=== PATIENT | male | born 1990 | race American Indian/Alaskan Native ===

== ENCOUNTER 2017-08-04 12:28 | Inpatient (IN) | payer BC, OTHER ==
[2017-08-04] MEDS ORDERED: ZOFRAN ONE ×2 (13:30→17:36)
[2017-08-04] MEDS ORDERED: TYLENOL ONE ×3 (13:30→17:38)
[2017-08-04] MEDS ORDERED: TYLENOL PO ONE (13:33)
[2017-08-04] MEDS ORDERED: ZOFRAN IV ONE (13:34)
--- NOTE | 2017-08-04 17:46 | Emergency Department Report ---
Blank Doc - Documentation Documentation: Patient is a 27-year-old male with a past medical history of asthmas, with body aches cough, congestion productive cough and 3 episodes of nausea and vomiting. Patient states he feels like his O he can't breathe however O2 sats within normal limits patient is febrile be given Vicodin for fever and pain and will perform a chest x-ray
[2017-08-04] MEDS ORDERED: NORCO 7.5/325 PO ONE (17:47)
--- NOTE | 2017-08-04 20:16 | XRay Report ---
FINAL REPORT EXAM: XR CHEST ROUTINE 2V HISTORY: cough TECHNIQUE: PA and lateral views of the chest PRIORS: None. FINDINGS: Lines, tubes, and devices: N/A Lungs and pleura: Trachea is normal in position. There is a rounded nodular shadow in the left upper lobe posteriorly measuring 12 mm overlying the posterior 5th rib. There is at least 2 adjacent smaller satellite nodular shadows superior to this larger nodule. CT is warranted. Lungs are otherwise clear of infiltrate, pleural effusion, vascular congestion, or pneumothorax. Cardiomediastinal silhouette: Cardiac and mediastinal silhouettes are unremarkable. Other: Bony structures are intact. IMPRESSION: No acute cardiopulmonary process seen. Several rounded nodular shadows in the left upper lobe posteriorly. CT is warranted.
[2017-08-04] MEDS ORDERED: MOTRIN PO ONE ×3 (21:06→21:36)
[2017-08-04] MEDS ORDERED: TORADOL IV ONE (21:08)
--- NOTE | 2017-08-04 21:10 | Emergency Department Report ---
HPI - General Chief Complaint: Upper Respiratory Infection Time Seen by Provider: 08/04/17 17:35 - HPI HPI: Patient care reports vomited 3 days with fever, upper respiratory cough and congestion. Denies any chest pain but reports some shortness of breath and exertion. Denies any recent long distance travel over 3 hours, denies any hormonal therapy, denies any recent convalescent period or any history of cancer. Denies any history of blood clots in his lungs or in his chest. Patient says he has a weak immune system and that he has asthma but denies having HIV. He denies generalized body ache at 8 out of 10. He said he took [id number] cough and cold but it's not helping. He said he vomited once today. Denies any diarrhea or abdominal pain. Denies any urinary burning frequency or urgency. Denies any sore throat. Patient does have access to primary care but he doesn't have a primary care doctor. ED Past Medical Hx - Past Medical History Previous Medical History?: Yes Hx Asthma: Yes Additional medical history: "WEAK IMMUNE SYSTEM" - Surgical History Past Surgical History?: No - Family History Family history: no significant - Social History Smoking Status: Current Every Day Smoker Substance Use Type: None - Medications Home Medications: Home Medications Medication Instructions Recorded Confirmed Last Taken Type Doxycycline [Vibramycin CAP] 100 mg PO BID #14 capsule 12/26/14 Unknown Rx Nitrofurantoin [place]/M-Cryst 100 mg PO Q12HR #14 capsule 12/26/14 Unknown Rx [Macrobid] Phenazopyridine HCl [Pyridium] 200 mg PO TID #6 tablet 12/26/14 Unknown Rx ED Review of Systems ROS: Stated complaint: FLU SYMTOMS Other details as noted in HPI Comment: All other systems reviewed and negative Constitutional: chills, fever, weakness Eyes: denies: eye pain, eye discharge ENT: congestion. denies: ear pain, throat pain Respiratory: cough, shortness of breath, SOB with exertion. denies: orthopnea, SOB at rest, stridor, wheezing Cardiovascular: denies: chest pain, palpitations, dyspnea on exertion, edema, syncope, paroxysmal nocturnal dyspnea Gastrointestinal: nausea, vomiting. denies: abdominal pain, diarrhea, constipation, hematemesis, melena, hematochezia Genitourinary: denies: urgency, dysuria, frequency, hematuria, discharge, testicular pain, testicular mass Musculoskeletal: myalgia. denies: back pain, joint swelling, arthralgia Skin: denies: rash Neurological: denies: headache, weakness, numbness, paresthesias, confusion, abnormal gait, vertigo Physical Exam - Physical Exam Vital Signs: Vital Signs 08/04/17 08/04/17 08/04/17 13:26 17:40 17:48 Temperature 101.5 F H Pulse Rate 89 91 H Respiratory 18 22 22 Rate Blood Pressure 122/70 112/78 O2 Sat by Pulse 97 97 Oximetry 08/04/17 08/04/17 08/04/17 17:52 18:11 18:12 Temperature 101.8 F H Pulse Rate Respiratory 16 16 Rate Blood Pressure O2 Sat by Pulse Oximetry Vital Signs 08/04/17 08/04/17 08/04/17 13:26 17:40 17:48 Temperature 101.5 F H Pulse Rate 89 91 H Respiratory 18 22 22 Rate Blood Pressure 122/70 112/78 Blood Pressure [Left] O2 Sat by Pulse 97 97 Oximetry 08/04/17 08/04/17 08/04/17 17:52 18:11 18:12 Temperature 101.8 F H Pulse Rate Respiratory 16 16 Rate Blood Pressure Blood Pressure [Left] O2 Sat by Pulse Oximetry 08/04/17 08/04/17 08/04/17 21:34 21:39 21:40 Temperature 99.8 F H Pulse Rate 92 H Respiratory 22 22 22 Rate Blood Pressure Blood Pressure 118/72 [Left] O2 Sat by Pulse 100 Oximetry General: This is a 27-year-old male that looks ill. He is nontoxic in appearance. Physical Exam: Head: Normocephalic, atraumatic, no abrasion, no bruising and no contusion. Eyes: Biateral pupils equal and reactive to light, bilateral EOM intact.. Bilateral conjunctival and sclera without injection, normal accommodation. No nystagmus Mouth: Moist, no pharyngeal exudate or erythema. No peritonsillar abscesses. Uvula is midline and oral airways patent. Ears: TM congested without erythema. Bilateral EAC without any redness swelling or drainage. No mastoid bone tenderness Nose: Lateral nasal turbinates congested with erythema and clear drainage. Maxillary and frontal sinuses tender to palpate. Neck: Supple, No Cervical adenopathy, full range of motion and no C-spine tenderness. No swelling or tracheal deviation normal reflexes Cardiovascular: S1, S2. Regular rate and rhythm. No murmur. Capillary refill is less then 3 seconds. Lungs: Clear to auscultate bilaterally. No rhonchi, wheezes or rales. No chest wall tenderness. No chest contusion. No bruising to chest. MSK: Strength 5/5 in all extremities. No joint deformity or crepitus. Normal inspection. Full range of motion to all extremities. No laceration, abrasion or ecchymotic area noted. Patient able to fully flex and extend bilateral knees without any difficulties. Bilateral knees nontender to palpate. Abdomen: Non-tender to palpate in all quadrants, no guarding or rebound tenderness, positive bowel sounds in all quadrants. No CVA tenderness. No hernia, bruit or mass. No rigidity or distention. Extremities: No clubbing, cyanosis or edema. +2 pulses. No neurovascular compromise Skin: Clean, dry and intact. No rash or lesions. Neurological: GCS at 15, Pt is alert and oriented 3 speech is clear period. Bilateral hand stone engraver strong and equal. Normal gait. Negative Romberg and no pronator drift. Normal Reflexes. No motor or sensory deficit Back: No vertebral tenderness, no paraspinal tenderness. The bend over and touch his toes without any difficulties. Ambulates without any difficulties. Psych: Normal mood and behavior ED Course Vital Signs 08/04/17 08/04/17 08/04/17 13:26 17:40 17:48 Temperature 101.5 F H Pulse Rate 89 91 H Respiratory 18 22 22 Rate Blood Pressure 122/70 112/78 O2 Sat by Pulse 97 97 Oximetry 08/04/17 08/04/17 08/04/17 17:52 18:11 18:12 Temperature 101.8 F H Pulse Rate Respiratory 16 16 Rate Blood Pressure O2 Sat by Pulse Oximetry Vital Signs 08/04/17 08/04/17 08/04/17 13:26 17:40 17:48 Temperature 101.5 F H Pulse Rate 89 91 H Respiratory 18 22 22 Rate Blood Pressure 122/70 112/78 Blood Pressure [Left] O2 Sat by Pulse 97 97 Oximetry 08/04/17 08/04/17 08/04/17 17:52 18:11 18:12 Temperature 101.8 F H Pulse Rate Respiratory 16 16 Rate Blood Pressure Blood Pressure [Left] O2 Sat by Pulse Oximetry 08/04/17 08/04/17 08/04/17 21:34 21:39 21:40 Temperature 99.8 F H Pulse Rate 92 H Respiratory 22 22 22 Rate Blood Pressure Blood Pressure 118/72 [Left] O2 Sat by Pulse 100 Oximetry - Reevaluation(s) Reevaluation #1: 08/04/17 14:11 Patient given acetaminophen 650 mg and Zofran 4 mg for pain and nausea Reevaluation #2: 08/04/17 18:13 He was given Hayden 5/325 one tablet that was ordered by Dr. Espino and chest x- ray showed patient has some abnormality in lungs and radiologist suggests CT scan. Patient is stable. He is able to tolerate oral liquids. I discussed patient is X her report and informed him that he will need to have lab work and a CT scan with IV contrast for further evaluation per radiologist and abnormal findings and CT scan. 08/04/17 22:14 Reevaluation #3: 08/04/17 22:14 Patient is stable, temperature is below 100 and other vital signs are stable. He is awaiting CT angiogram of the chest. Patient able to tolerate oral liquids but says he feels very dehydrated therefore he will was ordered to receive normal saline 1 L. Patient was given Toradol 30 mg IV for a can and Motrin 600 mg by mouth for fever bottle washer machine. Reevaluation #4: 08/04/17 23:06 Xopenex and Atrovent inhaler to be started. IV fluid normal saline 1 L infusing. Patient is stable and pain is better. Reevaluation #5: 08/04/17 23:[address] scan findings with patient and discussed that he will need to be admitted for IV antibiotic and to be monitored closely because he has viral versus bacterial pneumonia and always low of his lungs. Patient agrees with plan. Nebulizer treatments at present, IV fluids completed. I spoke with Dr. Lim who is the attending physician in emergency room and he wants patient to be admitted by hospitalist for close monitoring. He also wants patient to be started on Tamiflu. Dr. Renae is the hospitalist water pollution specialist and I paged her 2 and awaiting call back. ED Medical Decision Making - Lab Data Result diagrams: 08/04/17 21:22 08/04/17 21:22 Lab Results 08/04/17 08/04/17 08/04/17 Range/Units 21:22 21:22 21:22 WBC 7.3 (4.5-11.0) K/mm3 RBC 5.03 (3.65-5.03) M/mm3 Hgb 15.4 H (11.8-15.2) gm/dl Hct 45.7 H (35.5-45.6) % MCV 91 (84-94) fl MCH 31 (28-32) pg MCHC 34 (32-34) % RDW 12.4 L (13.2-15.2) % Plt Count 160 (140-440) K/mm3 [place] % (Auto) Diving Fisher PT 14.1 (12.2-14.9) Sec. INR 1.04 (0.87-1.13) APTT 39.1 H (24.2-36.6) Sec. Sodium 135 L (137-145) mmol/L Potassium 5.1 H (3.6-5.0) mmol/L Chloride 97.1 L (98-107) mmol/L Carbon Dioxide 22 (22-30) mmol/L Anion Gap 21 mmol/L BUN 11 (9-20) mg/dL Creatinine 0.8 (0.8-1.5) mg/dL Estimated GFR > 60 ml/min BUN/Creatinine Ratio 14 % Glucose 118 H (75-100) mg/dL Calcium 8.9 (8.4-10.2) mg/dL - Radiology Data Radiology results: report reviewed Chest x-ray revealed patient with no acute cardiopulmonary processes seen. Seen rounded nodular shadow in the left upper lobe posteriorly. Radiologist recommended CT scan. Patient CT scan suggests the patient has no pulmonary embolism but numerous nodular then flew these are descended bilaterally in all lobes the large S and most numerous in the left upper lobe. These have outer groundglass margin suggesting inflammatory or infectious etiology. Patient started off with flulike symptoms for possible viral pneumonia with superimposed bacterial. He also has peribronchial wall thickening noted bilaterally, particularly in the upper lobes, suggesting a viral etiology. - Medical Decision Making ED course: Critical care attestation.: If time is entered above; I have spent that time in minutes in the direct care of this critically ill patient, excluding procedure time. ED Disposition Clinical Impression: Fever in adult, Upper respiratory infection with cough and congestion Nausea & vomiting Qualifiers: Vomiting type: unspecified Vomiting Intractability: non-intractable Qualified Code(s): R11.2 - Nausea with vomiting, unspecified PNA (pneumonia) Qualifiers: Pneumonia type: due to unspecified organism Laterality: bilateral Lung location : unspecified part of lung Qualified Code(s): J18.9 - Pneumonia, unspecified organism Disposition: OP ADMIT IP TO THIS HOSP Is pt being admited?: Yes Does the pt Need Aspirin: No Condition: Stable Additional Instructions: Please increase your fluid intake. Take medication as prescribed Follow-up or referral as instructed Follow-up with a primary care physician and if he do not have a primary care physician follow-up with outside Medical Center. Follow-up with lung doctor as instructed. Referrals: PRIMARY MD JASON [Primary Care Provider] - 08/06/17 DAVE ENGLE MD [Staff Physician] - 08/06/17 [facility] [Outside] - 08/06/17 Forms: Accompanied Note, Work/School Release Form(ED)
[2017-08-04] MEDS ORDERED: NACL ONE (21:12)
[2017-08-04 21:44] LABS: Hematocrit 45.7 % (35.5-45.6); Hemoglobin 15.4 gm/dl (11.8-15.2); Mean Corpuscular HGB Conc 34 % (32-34); Mean Corpuscular Hemoglobin 31 pg (28-32); Mean Corpuscular Volume 91 fl (84-94); Platelet Count 160 K/mm3 (140-440); Red Blood Count 5.03 M/mm3 (3.65-5.03); Red Cell Distribution Width 12.4 % (13.2-15.2)
[2017-08-04 22:02] LABS: INR 1.04 (0.87-1.13)
[2017-08-04 22:03] LABS: BUN/Creatinine Ratio 14; Blood Urea Nitrogen 11 mg/dL (9-20); Calcium 8.9 mg/dL (8.4-10.2); Hemolysis Index 147; Partial Thromboplastin Time 39.1 Sec. (24.2-36.6)
[2017-08-04] MEDS ORDERED: NACL 0.9% 1000 ML 1,000 ML IV ONE (22:06)
[2017-08-04 22:16] LABS: Band Neutrophils # (Manual) 0.1 K/mm3; Basophils % (Manual) 0 % (0.0-1.8); Eosinophils % (Manual) 0 % (0.0-4.3); Total Cells Counted 100
[2017-08-04 22:17] LABS: Platelet Estimate Consistent w Auto; RBC Morphology Normal
[2017-08-04] MEDS ORDERED: ATROVENT IH ONE (23:06)
[2017-08-04] MEDS ORDERED: XOPENEX IH ONE (23:06)
--- NOTE | 2017-08-04 23:22 | Cat Scan Report ---
FINAL REPORT EXAM: CT ANGIO CHEST HISTORY: cough, SOB. Abnormal CXR TECHNIQUE: Enhanced CT of the chest at 2.5 mm axial intervals following a pulmonary embolism protocol. Coronal and sagittal imaging were also obtained. Coronal oblique MIP projections were obtained. Contrast: Intravenous contrast given PRIORS: CXR 08/04/2017 FINDINGS: There is no evidence for pulmonary embolism in the main pulmonary artery, right and left pulmonary arteries or their major distributions. However, CT does not exclude distal pulmonary emboli. There are multiple nodular densities scattered throughout all lobes of both lungs. Most significant of densities are in both upper lobes, left worse than right. However, these rounded densities have peripheral haziness suggesting a partially ground-glass appearance. Given the patient's age, findings are most likely infectious for inflammatory in etiology. However, they should be followed to radiographic resolution after appropriate interval therapy. The the nodular shadow seen on chest x-ray in the left apex correspond to the largest nodule seen on CT. On CT, the largest nodule measures 1 cm located posteriorly in the left upper lobe. Extensive peribronchial wall thickening is noted bilaterally, in the upper lobes, left worse than right (axial images 51-52). This finding is most commonly seen with a viral etiology. There is no evidence for vascular congestion or pleural effusion. There is no evidence for mediastinal, hilar, or axillary adenopathy. Residual thymus is noted in the anterior mediastinum. Cardiovascular structures are within normal limits. No evidence for ventricular chamber enlargement is seen. Images through the lung bases include the upper abdomen which show no abnormalities of the visualized abdominal viscera. Bony structures demonstrate no focal abnormalities. IMPRESSION: 1. no evidence for pulmonary embolism. 2. Numerous nodular densities present bilaterally the largest and most numerous in the left upper lobe. These have a outer ground-glass margin suggesting an inflammatory or infectious etiology. 3. Peribronchial wall thickening noted bilaterally, particularly in the upper lobes, suggesting a viral etiology.
[2017-08-04] MEDS ORDERED: LEVAQUIN 750MG/150ML 750 MG/150 ML BAG IV ONE (23:35)
[2017-08-05] MEDS: TAMIFLU PO SCH ×3 (02:05→21:40)
[2017-08-05] MEDS ORDERED: ZOFRAN IV PRN (02:53)
[2017-08-05] MEDS ORDERED: MILK OF MAGNESIA PO PRN (02:53)
[2017-08-05] MEDS ORDERED: DULCOLAX PR PRN (02:53)
[2017-08-05] MEDS: TYLENOL PO PRN ×2 (06:22→16:48)
[2017-08-05] MEDS: DUONEB *Not for PRN Use IH SCH ×3 (08:42→19:30)
--- NOTE | 2017-08-05 09:07 | Event Note ---
Date: 08/05/17 Patient seen and examined medical records reviewed Admitted early this morning with flulike symptoms, and droplet isolation Incidental findings of nodular densities on chest x-ray, pulmonary consulted Patient feels slightly better Mild cough nonproductive Physical examination changes Continue current management Follow pulmonary evaluation and recommendations Plan of care reviewed with the patient and his nurse
[2017-08-05] MEDS: LOVENOX SUB-Q SCH (11:19)
[2017-08-05] MEDS: LEVAQUIN 750MG/150ML 750 MG/150 ML BAG IV SCH (11:21)
--- NOTE | 2017-08-05 23:13 | Consultation ---
History of Present Illness Consult date: 08/05/17 History of present illness: PULMONARY CONSULTATION. DR. Werner thank you for asking us to participate in the care of this patient This is 27 year old male admitted with fever and cough with productive brown sputum mixed with blood.Denies chest pain or shortness of breath at this time. Denies night sweats or loss of weight. Apatite is coming back. Denies sore throat or nasal congestion.Patient has history of asthma. Smokes Marijuana. Denies smoking cigaretts and alcohol. works with [employer]. Not and has four children.Allergic to clndamycin HCL and clindamycin Palmitate. Patient denies any history TB or exposure to the TB Patient. Past History Past Medical History: other (Asthma.) Social history: other (Smokes Marjuana). denies: smoking, alcohol abuse, prescription drug abuse Medications and Allergies Allergies Allergy/AdvReac Type Severity Reaction Status Date / Time clindamycin HCl Allergy Rash Verified 12/08/14 07:44 [From Cleocin] clindamycin palmitate HCl Allergy Rash Verified 12/08/14 07:44 [From Cleocin] clindamycin phosphate Allergy Rash Verified 12/08/14 07:44 [From Cleocin] Penicillins Allergy Rash Verified 12/08/14 07:44 codeine AdvReac Unknown Verified 12/08/14 07:44 Home Medications Medication Instructions Recorded Confirmed Last Taken Type Doxycycline [Vibramycin CAP] 100 mg PO BID #14 capsule 12/26/14 Unknown Rx Nitrofurantoin [place]/M-Cryst 100 mg PO Q12HR #14 capsule 12/26/14 Unknown Rx [Macrobid] Phenazopyridine HCl [Pyridium] 200 mg PO TID #6 tablet 12/26/14 Unknown Rx Active Meds: Active Medications Acetaminophen (Tylenol) 650 mg PO Q4H PRN PRN Reason: Pain MILD(1-3)/Fever >100.5/NOLASCO Last Admin: 08/05/17 16:48 Dose: 650 mg Albuterol/Ipratropium (Duoneb *Not For Prn Use*) 1 ampul IH Q6HRT SHANNON Last Admin: 08/05/17 19:30 Dose: 1 ampul Bisacodyl (Dulcolax) [address] QDAY PRN PRN Reason: Constipation unrelieved by MOM Enoxaparin Sodium (Lovenox) 40 mg SUB-Q QDAY [facility] Last Admin: 08/05/17 11:19 Dose: 40 mg Levofloxacin/Dextrose (Levaquin 750mg/150ml) 750 mg in 150 mls @ 100 mls/hr IV Q24H [facility] Last Admin: 08/05/17 11:21 Dose: 100 mls/hr Magnesium Hydroxide (Milk Of Magnesia) 30 ml PO Q4H PRN PRN Reason: Constipation Ondansetron HCl (Zofran) 4 mg IV Q8H PRN PRN Reason: N/V unrelieved by Reglan Oseltamivir Phosphate (Tamiflu) 75 mg PO BID [facility] Stop: 08/09/17 10:01 Last Admin: 08/05/17 21:40 Dose: 75 mg Review of Systems All systems: negative Physical Examination Vital signs: Vital Signs Temp Pulse Resp BP Pulse Ox 101.5 F H 89 18 122/70 97 08/04/17 13:26 08/04/17 13:26 08/04/17 13:26 08/04/17 13:26 08/04/17 13:26 General appearance: no acute distress, alert, other (Having cough.) Eyes: non-icteric ENT: oropharynx moist Neck: supple, no JVD Ascultation: Bilateral: rhonchi Cardiovascular: regular rate and rhythm Gastrointestinal: normoactive bowel sounds, soft, non-tender Integumentary: normal Extremities: no cyanosis, no edema normal mental status, non-focal exam, pupils equal and round, CN II-XII normal anxious Results - Laboratory Findings CBC and BMP: 08/04/17 21:22 08/04/17 21:22 PT/INR, D-dimer PT 14.1 Sec. (12.2-14.9) 08/04/17 21:22 INR 1.04 (0.87-1.13) 08/04/17 21:22 Abnormal lab findings: Abnormal Labs 08/04/17 08/04/17 08/04/17 21:22 21:22 21:22 Hgb 15.4 H Hct 45.7 H RDW 12.4 L Lymphocytes % (Manual) 12.0 L Monocytes % (Manual) 18.0 H Lymphocytes # (Manual) 0.9 L Monocytes # (Manual) 1.3 H APTT 39.1 H Sodium 135 L Potassium 5.1 H Chloride 97.1 L Glucose 118 H - Diagnostic Findings Chest x-ray: report reviewed (Round nodular densities left upper lobe posteriorly.), image reviewed CT scan - chest: report reviewed (No pulmonary emboli. upper lobe nodules more on left upper lobe, reported likely inflsmmatory.), image reviewed Assessment and Plan This is 27 year old male admitted with fever and cough with productive brown sputum mixed with blood.Denies chest pain or shortness of breath at this time. Denies night sweats or loss of weight. Apatite is coming back. Denies sore throat or nasal congestion.Patient has history of asthma. Smokes Marijuana. Denies smoking cigaretts and alcohol. works with [employer]. Not and has four children.Allergic to clndamycin HCL and clindamycin Palmitate. Patient denies any history TB or exposure to the TB Patient. - Patient Problems (1) Pulmonary nodules Current Visit: Yes Status: Acute Plan to address problem: Upper lobes predominant in left upper lobe. Recommend sputum for AFB Respiratory isolation PPD and brinda skin tests. Continue Levaquin. Continue S/C Lovenox. (2) Fever in adult Current Visit: Yes Status: Acute Plan to address problem: Upper lobes predominant in left upper lobe. Recommend sputum for AFB Respiratory isolation PPD and brinda skin tests. Continue Levaquin. (3) Upper respiratory infection with cough and congestion Current Visit: Yes Status: Acute Plan to address problem: Continue Levaquin. Albuterol/atrovent aerosol treatments q 6 hours. ABGs on room air.
[2017-08-06] MEDS: DUONEB *Not for PRN Use IH SCH ×4 (01:32→21:25)
[2017-08-06 08:07] LABS: Basophils % (Auto) 0.2 % (0.0-1.8); Eosinophils % (Auto) 0.3 % (0.0-4.3); Hematocrit 41.2 % (35.5-45.6); Lymphocytes # (Auto) 1.6 K/mm3 (1.2-5.4); Lymphocytes % (Auto) 20.3 % (13.4-35.0); Mean Corpuscular HGB Conc 34 % (32-34); Mean Corpuscular Hemoglobin 31 pg (28-32); Mean Corpuscular Volume 91 fl (84-94); Monocytes % (Auto) 12.7 % (0.0-7.3); Platelet Count 156 K/mm3 (140-440); Red Blood Count 4.52 M/mm3 (3.65-5.03); Red Cell Distribution Width 12.4 % (13.2-15.2)
[2017-08-06 08:26] LABS: BUN/Creatinine Ratio 13; Blood Urea Nitrogen 10 mg/dL (9-20); Hemolysis Index 7
[2017-08-06] MEDS: LOVENOX SUB-Q SCH (10:51)
[2017-08-06] MEDS: LEVAQUIN 750MG/150ML 750 MG/150 ML BAG IV SCH (10:51)
[2017-08-06] MEDS: TAMIFLU PO SCH ×2 (14:15→23:05)
--- NOTE | 2017-08-06 19:25 | Progress Note ---
Assessment and Plan This is 27 year old male admitted with fever and cough with productive brown sputum mixed with blood.Denies chest pain or shortness of breath at this time. Denies night sweats or loss of weight. Apatite is coming back. Denies sore throat or nasal congestion.Patient has history of asthma. Smokes Marijuana. Denies smoking cigaretts and alcohol. works with [employer]. Not and has four children.Allergic to clndamycin HCL and clindamycin Palmitate. Patient denies any history TB or exposure to the TB Patient. 08/06/17 Patient alert awake and resting on room air. Patient says feeling better. Cough is getting better.O2 saturation 97% on room air.PO2 86 on room air. Patient still running low grade temp - Patient Problems (1) Pulmonary nodules Current Visit: Yes Status: Acute Plan to address problem: Upper lobes predominant in left upper lobe. Recommend sputum for AFB Respiratory isolation PPD and brinda skin tests. Continue Levaquin. Continue S/C Lovenox. (2) Fever in adult Current Visit: Yes Status: Acute Plan to address problem: Upper lobes predominant in left upper lobe. Recommend sputum for AFB Respiratory isolation PPD and brinda skin tests. Continue Levaquin. (3) Upper respiratory infection with cough and congestion Current Visit: Yes Status: Acute Plan to address problem: Continue Levaquin. Albuterol/atrovent aerosol treatments q 6 hours. Subjective Date of service: 08/06/17 Interval history: Patient alert awake and resting on room air. Patient says feeling better. Cough is getting better.O2 saturation 97% on room air. PO2 86 on room air.Patient still running low grade temp. Objective Vital Signs - 12hr 08/06/17 08/06/17 08/06/17 08:14 08:19 08:54 Temperature 99.4 F Pulse Rate 78 Pulse Rate [ 88 89 Bilateral Upper Lobe] Respiratory 20 Rate Respiratory 18 18 Rate [Bilateral Upper Lobe] Blood Pressure 122/69 O2 Sat by Pulse 95 95 Oximetry 08/06/17 08/06/17 10:00 16:24 Temperature 98.8 F Pulse Rate 72 Pulse Rate [ Bilateral Upper Lobe] Respiratory 18 18 Rate Respiratory Rate [Bilateral Upper Lobe] Blood Pressure 137/83 O2 Sat by Pulse 97 Oximetry Constitutional: no acute distress, alert, other (Having cough.) Eyes: non-icteric ENT: oropharynx moist Neck: supple, no JVD Ascultation: Bilateral: rhonchi Cardiovascular: regular rate and rhythm Gastrointestinal: normoactive bowel sounds, soft, non-tender Integumentary: normal Extremities: no cyanosis, no edema Neurologic: normal mental status, non-focal exam, pupils equal and round, CN II- XII normal Psychiatric: anxious CBC and BMP: 08/06/17 07:42 08/06/17 07:42 ABG, PT/INR, D-dimer: ABG POC ABG pH 7.422 (7.35-7.45) 08/06/17 12:59 POC ABG pCO2 39.0 (35-45) 08/06/17 12:59 POC ABG pO2 86 (80-105) 08/06/17 12:59 POC ABG HCO3 25.4 08/06/17 12:59 POC ABG Total CO2 27 08/06/17 12:59 POC ABG O2 Sat 97 08/06/17 12:59 PT/INR, D-dimer PT 14.1 Sec. (12.2-14.9) 08/04/17 21:22 INR 1.04 (0.87-1.13) 08/04/17 21:22 Abnormal lab findings: Abnormal Labs 08/04/17 08/04/17 08/04/17 21:22 21:22 21:22 Hgb 15.4 H Hct 45.[address] [place] % (Auto) [place] # Lymphocytes % (Manual) 12.0 L Monocytes % (Manual) 18.0 H Lymphocytes # (Manual) 0.9 L Monocytes # (Manual) 1.3 H APTT 39.1 H Sodium 135 L Potassium 5.1 H Chloride 97.1 L Glucose 118 H 08/06/17 08/06/17 07:42 07:42 Hgb Hct RDW 12.[address] [place] % (Auto) 12.[address] [place] # 1.0 H Lymphocytes % (Manual) Monocytes % (Manual) Lymphocytes # (Manual) Monocytes # (Manual) APTT Sodium Potassium Chloride 94.5 L Glucose
--- NOTE | 2017-08-06 19:48 | Progress Note ---
Assessment and Plan Assessment and plan: --Febrile illness; secondary to sepsis Supportive care, IV antibiotics, follow cultures --Upper respiratory symptoms; with possible pneumonitis Continue antibiotic Levaquin, nebulizers, oxygen Supportive care --Bilateral pulmonary nodules predominantly left upper lobe Pulmonary following, sputum for AFB, PPD test, respiratory isolation Supportive care --Mild hyponatremia at admission; not improved --DVT prophylaxis with Lovenox Closely monitor and follow cultures and pending tests Plan of care reviewed with the patient History Interval history: Patient seen and evaluated medical records reviewed Pulmonary evaluation noted and appreciated Patient is in airborne isolation, evaluation for pulmonary tuberculosis Vital signs reviewed No new events reported by the nursing staff Hospitalist Physical - Constitutional Vitals: Temp Pulse Resp BP Pulse Ox 98.8 F 72 18 137/83 97 08/06/17 16:24 08/06/17 16:24 08/06/17 16:24 08/06/17 16:24 08/06/17 16:24 General appearance: Present: mild distress, cachectic - EENT Eyes: Present: PERRL, EOM intact - Neck Neck: Present: supple, normal ROM - Respiratory Respiratory effort: normal Respiratory: bilateral: diminished, rhonchi, negative: rales, wheezing - Cardiovascular Rhythm: regular Heart Sounds: Present: S1 & S2 - Extremities Extremities: no ischemia, No edema Peripheral Pulses: within normal limits - Abdominal General gastrointestinal: soft, non-tender, non-distended, normal bowel sounds - Integumentary Integumentary: Present: clear, warm - Psychiatric Psychiatric: appropriate mood/affect, cooperative - Neurologic Neurologic: CNII-XII intact, moves all extremities Results - Labs CBC & Chem 7: 08/06/17 07:42 08/06/17 07:42 Labs: Laboratory Last Values WBC 7.9 K/mm3 (4.5-11.0) 08/06/17 07:42 RBC 4.52 M/mm3 (3.65-5.03) 08/06/17 07:42 Hgb 14.0 gm/dl (11.8-15.2) 08/06/17 07:42 Hct 41.2 % (35.5-45.6) 08/06/17 07:42 MCV 91 fl (84-94) 08/06/17 07:42 MCH 31 pg (28-32) 08/06/17 07:42 MCHC 34 % (32-34) 08/06/17 07:42 RDW 12.4 % (13.2-15.2) L 08/06/17 07:42 Plt Count 156 K/mm3 (140-440) 08/06/17 07:42 Lymph % (Auto) 20.3 % (13.4-35.0) 08/06/17 07:42 [place] % (Auto) 12.7 % (0.0-7.3) H 08/06/17 07:42 Eos % (Auto) 0.3 % (0.0-4.3) 08/06/17 07:42 Baso % (Auto) 0.2 % (0.0-1.8) 08/06/17 07:42 Lymph # 1.6 K/mm3 (1.2-5.4) 08/06/17 07:42 [place] # 1.0 K/mm3 (0.0-0.8) H 08/06/17 07:42 Eos # 0.0 K/mm3 (0.0-0.4) 08/06/17 07:42 Baso # 0.0 K/mm3 (0.0-0.1) 08/06/17 07:42 Add Manual Diff Complete 08/04/17 21:22 Total Counted 100 08/04/17 21:22 Seg Neutrophils % 66.5 % (40.0-70.0) 08/06/17 07:42 Seg Neuts % (Manual) 69.0 % (40.0-70.0) 08/04/17 21:22 Band Neutrophils % 1.0 % 08/04/17 21:22 Lymphocytes % (Manual) 12.0 % (13.4-35.0) L 08/04/17 21:22 Reactive Lymphs % (Man) 0 % 08/04/17 21:22 Monocytes % (Manual) 18.0 % (0.0-7.3) H 08/04/17 21:22 Eosinophils % (Manual) 0 % (0.0-4.3) 08/04/17 21:22 Basophils % (Manual) 0 % (0.0-1.8) 08/04/17 21:22 Metamyelocytes % 0 % 08/04/17 21:22 Myelocytes % 0 % 08/04/17 21:22 Promyelocytes % 0 % 08/04/17 21:22 Blast Cells % 0 % 08/04/17 21:22 Nucleated RBC % Not Reportable 08/04/17 21:22 Seg Neutrophils # 5.3 K/mm3 (1.8-7.7) 08/06/17 07:42 Seg Neutrophils # Man 5.0 K/mm3 (1.8-7.7) 08/04/17 21:22 Band Neutrophils # 0.1 K/mm3 08/04/17 21:22 Lymphocytes # (Manual) 0.9 K/mm3 (1.2-5.4) L 08/04/17 21:22 Abs React Lymphs (Man) 0.0 K/mm3 08/04/17 21:22 Monocytes # (Manual) 1.3 K/mm3 (0.0-0.8) H 08/04/17 21:22 Eosinophils # (Manual) 0.0 K/mm3 (0.0-0.4) 08/04/17 21:22 Basophils # (Manual) 0.0 K/mm3 (0.0-0.1) 08/04/17 21:22 Metamyelocytes # 0.0 K/mm3 08/04/17 21:22 Myelocytes # 0.0 K/mm3 08/04/17 21:22 Promyelocytes # 0.0 K/mm3 08/04/17 21:22 Blast Cells # 0.0 K/mm3 08/04/17 21:22 WBC Morphology Not Reportable 08/04/17 21:22 Hypersegmented Neuts Not Reportable 08/04/17 21:22 Hyposegmented Neuts Not Reportable 08/04/17 21:22 Hypogranular Neuts Not Reportable 08/04/17 21:22 Smudge Cells Not Reportable 08/04/17 21:22 Toxic Granulation Not Reportable 08/04/17 21:22 Toxic Vacuolation Not Reportable 08/04/17 21:22 Dohle Bodies Not Reportable 08/04/17 21:22 Pelger-Huet Anomaly Not Reportable 08/04/17 21:22 Alejandra Rods Not Reportable 08/04/17 21:22 Platelet Estimate Consistent w auto 08/04/17 21:22 Clumped Platelets Not Reportable 08/04/17 21:22 Plt Clumps, EDTA Not Reportable 08/04/17 21:22 Large Platelets Not Reportable 08/04/17 21:22 Giant Platelets Not Reportable 08/04/17 21:22 Platelet Satelliting Not Reportable 08/04/17 21:22 Plt Morphology Comment Not Reportable 08/04/17 21:22 RBC Morphology Normal 08/04/17 21:22 Dimorphic RBCs Not Reportable 08/04/17 21:22 Polychromasia Not Reportable 08/04/17 21:22 Hypochromasia Not Reportable 08/04/17 21:22 Poikilocytosis Not Reportable 08/04/17 21:22 Anisocytosis Not Reportable 08/04/17 21:22 Microcytosis Not Reportable 08/04/17 21:22 Macrocytosis Not Reportable 08/04/17 21:22 Spherocytes Not Reportable 08/04/17 21:22 Pappenheimer Bodies Not Reportable 08/04/17 21:22 Sickle Cells Not Reportable 08/04/17 21:22 Target Cells Not Reportable 08/04/17 21:22 Tear Drop Cells Not Reportable 08/04/17 21:22 Ovalocytes Not Reportable 08/04/17 21:22 Helmet Cells Not Reportable 08/04/17 21:22 [place] Bodies Not Reportable 08/04/17 21:22 [place] Rings Not Reportable 08/04/17 21:22 Lisa Cells Not Reportable 08/04/17 21:22 Bite Cells Not Reportable 08/04/17 21:22 Crenated Cell Not Reportable 08/04/17 21:22 Elliptocytes Not Reportable 08/04/17 21:22 Acanthocytes (Spur) Not Reportable 08/04/17 21:22 Rouleaux Not Reportable 08/04/17 21:22 Hemoglobin C Crystals Not Reportable 08/04/17 21:22 Schistocytes Not Reportable 08/04/17 21:22 Malaria parasites Not Reportable 08/04/17 21:22 [place] Bodies Not Reportable 08/04/17 21:22 Hem Pathologist Commnt No 08/04/17 21:22 PT 14.1 Sec. (12.2-14.9) 08/04/17 21:22 INR 1.04 (0.87-1.13) 08/04/17 21:22 APTT 39.1 Sec. (24.2-36.6) H 08/04/17 21:22 POC ABG pH 7.422 (7.35-7.45) 08/06/17 12:59 POC ABG pCO2 39.0 (35-45) 08/06/17 12:59 POC ABG pO2 86 (80-105) 08/06/17 12:59 POC ABG HCO3 25.4 08/06/17 12:59 POC ABG Total CO2 27 08/06/17 12:59 POC ABG O2 Sat 97 08/06/17 12:59 POC ABG Base Excess 1 08/06/17 12:59 FiO2 21 % 08/06/17 12:59 Sodium 137 mmol/L (137-145) 08/06/17 07:42 Potassium 3.9 mmol/L (3.6-5.0) D 08/06/17 07:42 Chloride 94.5 mmol/L (98-107) L 08/06/17 07:42 Carbon Dioxide 26 mmol/L (22-30) 08/06/17 07:42 Anion Gap 20 mmol/L 08/06/17 07:42 BUN 10 mg/dL (9-20) 08/06/17 07:42 Creatinine 0.8 mg/dL (0.8-1.5) 08/06/17 07:42 Estimated GFR > 60 ml/min 08/06/17 07:42 BUN/Creatinine Ratio 13 % 08/06/17 07:42 Glucose 90 mg/dL (75-100) 08/06/17 07:42 Lactic Acid 0.90 mmol/L (0.7-2.0) 08/04/17 23:55 Calcium 9.0 mg/dL (8.4-10.2) 08/06/17 07:42
[2017-08-07] MEDS: DUONEB *Not for PRN Use IH SCH ×3 (03:19→13:16)
[2017-08-07 08:48] VITALS: BP 120/91
--- NOTE | 2017-08-07 09:24 | Progress Note ---
Assessment and Plan --Bilateral pulmonary nodules predominantly left upper lobe --Febrile illness; secondary to sepsis --Mild hyponatremia Subjective Date of service: 08/07/17 Interval history: Patient seen and evaluated medical records reviewed Patient is in airborne isolation, evaluation for pulmonary tuberculosis Vital signs reviewed No new events reported by the nursing staff Patient alert awake and resting on room air. Patient says feeling better. Cough is getting better. O2 saturation 97% on room air.PO2 86 on room air Objective Vital Signs - 12hr 08/06/17 08/06/17 08/07/17 21:25 23:43 01:15 Temperature 98.0 F Pulse Rate 66 Pulse Rate [ 65 Posterior Left Lower Lobe] Respiratory 19 Rate Respiratory 16 Rate [Posterior Left Lower Lobe] Blood Pressure 124/75 O2 Sat by Pulse 93 98 Oximetry 08/07/17 07:38 Temperature 98.8 F Pulse Rate 77 Pulse Rate [ Posterior Left Lower Lobe] Respiratory 20 Rate Respiratory Rate [Posterior Left Lower Lobe] Blood Pressure 120/91 O2 Sat by Pulse 96 Oximetry Constitutional: no acute distress, alert, other (Having cough.) Eyes: non-icteric ENT: oropharynx moist Neck: supple, no JVD Ascultation: Bilateral: rhonchi Cardiovascular: regular rate and rhythm Gastrointestinal: normoactive bowel sounds, soft, non-tender Integumentary: normal Extremities: no cyanosis, no edema Neurologic: normal mental status, non-focal exam, pupils equal and round, CN II- XII normal Psychiatric: anxious CBC and BMP: 08/07/17 09:15 08/07/17 09:15 ABG, PT/INR, D-dimer: ABG POC ABG pH 7.422 (7.35-7.45) 08/06/17 12:59 POC ABG pCO2 39.0 (35-45) 08/06/17 12:59 POC ABG pO2 86 (80-105) 08/06/17 12:59 POC ABG HCO3 25.4 08/06/17 12:59 POC ABG Total CO2 27 08/06/17 12:59 POC ABG O2 Sat 97 08/06/17 12:59 PT/INR, D-dimer PT 14.1 Sec. (12.2-14.9) 08/04/17 21:22 INR 1.04 (0.87-1.13) 08/04/17 21:22 Abnormal lab findings: Abnormal Labs 08/04/17 08/04/17 08/04/17 21:22 21:22 21:22 Hgb 15.4 H Hct 45.7 H RDW 12.4 L [place] % (Auto) [place] # Lymphocytes % (Manual) 12.0 L Monocytes % (Manual) 18.0 H Lymphocytes # (Manual) 0.9 L Monocytes # (Manual) 1.3 H APTT 39.1 H Sodium 135 L Potassium 5.1 H Chloride 97.1 L Glucose 118 H 08/06/17 08/06/17 07:42 07:42 Hgb Hct RDW 12.4 L [place] % (Auto) 12.7 H [place] # 1.0 H Lymphocytes % (Manual) Monocytes % (Manual) Lymphocytes # (Manual) Monocytes # (Manual) APTT Sodium Potassium Chloride 94.5 L Glucose
[2017-08-07 10:08] LABS: Basophils % (Auto) 0.6 % (0.0-1.8); Eosinophils # (Auto) 0.1 K/mm3 (0.0-0.4); Eosinophils % (Auto) 1.1 % (0.0-4.3); Hemoglobin 14.5 gm/dl (11.8-15.2); Lymphocytes # (Auto) 1.6 K/mm3 (1.2-5.4); Lymphocytes % (Auto) 26.5 % (13.4-35.0); Mean Corpuscular HGB Conc 34 % (32-34); Mean Corpuscular Hemoglobin 31 pg (28-32); Mean Corpuscular Volume 91 fl (84-94); Monocytes # (Auto) 0.9 K/mm3 (0.0-0.8); Monocytes % (Auto) 14.5 % (0.0-7.3); Platelet Count 226 K/mm3 (140-440); Red Blood Count 4.71 M/mm3 (3.65-5.03); Red Cell Distribution Width 12.4 % (13.2-15.2)
[2017-08-07] MEDS: TAMIFLU PO SCH (10:18)
[2017-08-07 10:19] LABS: BUN/Creatinine Ratio 14; Blood Urea Nitrogen 10 mg/dL (9-20); Calcium 9.3 mg/dL (8.4-10.2); Hemolysis Index 15
[2017-08-07] MEDS: LOVENOX SUB-Q SCH ×2 (10:19→10:21)
[2017-08-07] MEDS: LEVAQUIN 750MG/150ML 750 MG/150 ML BAG IV SCH (10:51)
--- NOTE | 2017-08-07 21:04 | Discharge Summary ---
Providers - Providers Date of Admission: 08/05/17 02:53 Date of discharge: 08/07/17 Attending physician: MILTON DIEGO 08/05/17 02:53 Consult to Physician [CONS] Routine Consulting Provider: ALEXX DUQUE Reason For Exam: nodoular densities Place consult to:: DR. DUQUE Notified:: DR. DUQUE Phone number called:: [phone] Was contact made?: Yes If yes, spoke with:: DR. DUQUE Time called:: 10:50 Comment:: ANA NOTIFIED Primary care physician: HEAD SAMPLER Hospitalization Condition: Stable Disposition: DC-07 LEFT AGAINST MED ADVICE Exam - Constitutional Vitals: Temp Pulse Resp BP Pulse Ox 98.8 F 77 20 120/91 96 08/07/17 07:38 08/07/17 07:38 08/07/17 07:38 08/07/17 07:38 08/07/17 07:38 Plan Follow up with: [facility] [Outside] - 08/06/17 DAVE ENGLE MD [Staff Physician] - 08/06/17 PRIMARY CAREMD [Primary Care Provider] - 08/06/17 Forms: Accompanied Note, Work/School Release Form(ED)
== END 2017-08-07 13:00 | disposition left against medical advice (07) | DRG 871 ==
LOC: ED 12:28 → 3A 08-05 02:53
PROVIDERS: ADMIT Internal Medicine; ATTEND Internal Medicine
PROC: 4A033R1 Measurement of Arterial Saturation, Peripheral, Percutaneous Approach (ICD-10-PCS; principal; 2017-08-06)
DX: A41.9 Sepsis, unspecified organism (principal); J18.9 Pneumonia, unspecified organism; E87.1 Hypo-osmolality and hyponatremia; F17.200 Nicotine dependence, unspecified, uncomplicated; J06.9 Acute upper respiratory infection, unspecified; R91.1 Solitary pulmonary nodule; Z79.899 Other long term (current) drug therapy; Z88.1 Allergy status to other antibiotic agents; Z88.5 Allergy status to narcotic agent; Z88.0 Allergy status to penicillin
CPT/HCPCS: 36415; 36600; 71046; 71275; 80048; 82140; 82803; 85007; 85025; 85610; 85730; 87040; 94640; 94760; 96374; 96375; J1650; J1885; J1956; J2405; J7030; Q9967

== ENCOUNTER 2018-12-31 06:47 | Emergency (ER) | payer SELFPAY ==
[2018-12-31 06:54] VITALS: BP 121/76
[2018-12-31] MEDS ORDERED: DECADRON IM ONE (07:44)
--- NOTE | 2018-12-31 07:45 | Emergency Department Report ---
ED Neck Pain [facility] Chief Complaint: Neck Pain/Injury Stated Complaint: NECK PAIN Time Seen by Provider: 12/31/18 07:35 Duration: Today Neck Pain Location: Posterior Neck Severity: moderate Mechanism: Unsure Symptoms: Yes Pain with Movement, No Radiation to Left Upper Ext, No Radiation to Right Upper Ext, No Numbness, No Weakness, No Previous History Other History: woke up with paraspinal neck pain worse w movement. no injury. no fever. no other sx ED Review of Systems ROS: Stated complaint: NECK PAIN Other details as noted in HPI Comment: All other systems reviewed and negative Musculoskeletal: as per HPI ED Past Medical Hx - Past Medical History Previous Medical History?: Yes Hx Heart Attack/AMI: No Hx Congestive Heart Failure: No Hx Diabetes: No Hx Asthma: Yes Hx COPD: No Hx HIV: No Additional medical history: "WEAK IMMUNE SYSTEM" - Surgical History Past Surgical History?: No - Social History Smoking Status: Current Every Day Smoker Substance Use Type: None - Medications Home Medications: Home Medications Medication Instructions Recorded Confirmed Last Taken Type DOXYCYCLINE Hyclate [Vibramycin 100 mg PO BID #14 capsule 12/26/14 08/06/17 Unknown Rx CAP] Nitrofurantoin [place]/M-Cryst 100 mg PO Q12HR #14 capsule 12/26/14 08/06/17 Unkn own Rx [Macrobid] Phenazopyridine HCl [Pyridium] 200 mg PO TID #6 tablet 12/26/14 08/06/17 Unknown Rx Cyclobenzaprine [Flexeril 10 MG 10 mg PO TID PRN #15 tablet 12/31/18 Unknown Rx TAB] Naproxen [Naprosyn] 500 mg PO BID #20 tablet 12/31/18 Unknown Rx Neck Pain Exam - Exam General: Vital signs noted. No distress. Alert and acting appropriately. HEENT: No Facial Pain, No Scalp Tenderness, No Contusion, No Abrasion, No Laceration Neck Pain: Yes Right Paraspinal Tenderness, Yes Left Paraspinal Tenderness, Yes Right Trapezius Tenderness, Yes Left Trapezius Tenderness, Yes Pain with Rotation Right, Yes Pain with Rotation Left, No Midline Tenderness Chest: Yes Clear Lung Sounds, No Pain with Respirations Heart: Yes Regular, No Murmur Back: No Thoracic Tenderness, No Lumbar Tenderness Neuro: Yes Normal Reflexes, No Numbness, No Weakness, No Radicular Deficits ED Course Vital Signs 12/31/18 06:51 Temperature 98.0 F Pulse Rate 87 Respiratory 16 Rate Blood Pressure 121/76 O2 Sat by Pulse 95 Oximetry ED Medical Decision Making - Medical Decision Making atraumatic muscular neck pain no other findings on exam neuro intact fu pcp - Differential Diagnosis strain, spasms Critical care attestation.: If time is entered above; I have spent that time in minutes in the direct care of this critically ill patient, excluding procedure time. ED Disposition Clinical Impression: Neck strain Qualifiers: Encounter type: initial encounter Qualified Code(s): S16.1XXA - Strain of muscle, fascia and tendon at neck level, initial encounter Disposition: TO HOME OR SELFCARE Is pt being admited?: No Condition: Good Instructions: Muscle Strain (ED) Prescriptions: Cyclobenzaprine [Flexeril 10 MG TAB] 10 mg PO TID PRN #15 tablet PRN Reason: Muscle Spasm Naproxen [Naprosyn] 500 mg PO BID #20 tablet Referrals: [facility] MD OZZIE [Primary Care Provider] - 3-5 Days Time of Disposition: 07:44
== END 2018-12-31 07:56 | disposition home or self-care (01) ==
LOC: ED 06:47
DX: S16.1XXA Strain of muscle, fascia and tendon at neck level, initial encounter (principal); J45.909 Unspecified asthma, uncomplicated; F17.200 Nicotine dependence, unspecified, uncomplicated; Z88.1 Allergy status to other antibiotic agents; X58.XXXA Exposure to other specified factors, initial encounter; Y93.89 Activity, other specified; Y92.89 Other specified places as the place of occurrence of the external cause; Y99.8 Other external cause status
CPT/HCPCS: 96372; 99282; J1100